=== PATIENT | female | born 1960 | race Caucasian/White ===

== ENCOUNTER → 2016-09-19 | Outpatient (CLI) | payer BC | LOC: MC.RAD 07:17 | DX: Z12.31 Encounter for screening mammogram for malignant neoplasm of breast (principal) ==

== ENCOUNTER → 2017-09-21 | Outpatient (CLI) | payer BC | LOC: MC.RAD 07:36 | DX: Z12.31 Encounter for screening mammogram for malignant neoplasm of breast (principal) ==

== ENCOUNTER → 2017-09-24 | Outpatient (CLI) | payer BC | LOC: MC.RAD 13:20 | DX: R92.8 Other abnormal and inconclusive findings on diagnostic imaging of breast (principal) ==

== ENCOUNTER 2018-06-15 21:23 | Emergency (ER) | payer BC ==
[~2018-06-15] VITALS: Ht 154.9 cm; Wt 59.1 kg
[2018-06-15 21:33] VITALS: TEMP 97.5
[2018-06-15 21:35] LABS: COLLECTION METHOD CLEAN CATCH
[2018-06-15 21:38] VITALS: BP 145/84
[2018-06-15 21:59] LABS: SQUAMOUS EPITHELIAL None Seen /hpf; URINE BACTERIA Rare /hpf
[2018-06-15 22:11] LABS: PH 7 (5-8); URINE APPEARANCE Clear; URINE BILIRUBIN Negative (NEGATIVE); URINE BLOOD 3+ (NEGATIVE); URINE COLOR Yellow; URINE GLUCOSE Negative (NEGATIVE); URINE KETONE Negative (NEGATIVE); URINE LEUKOCYTE ESTERASE 2+ (NEGATIVE); URINE NITRATE Negative (NEGATIVE); URINE PROTEIN(semi-quant) Negative (NEGATIVE); URINE UROBILINOGEN Negative (NEGATIVE)
[2018-06-15] MEDS ORDERED: CEFTIN 250250 MG/TAB PO (22:39)
[2018-06-15] MEDS ORDERED: PEPCID 20MG TAB20 MG PO (22:44)
[2018-06-15 22:45] VITALS: PULSE 48
== END 2018-06-15 22:55 | disposition home or self-care (01) ==
LOC: COL.ER 21:23
PROVIDERS: Emergency Medicine
DX: N39.0 Urinary tract infection, site not specified (principal); K21.9 Gastro-esophageal reflux disease without esophagitis; I10 Essential (primary) hypertension

== ENCOUNTER → 2018-09-30 | Outpatient (CLI) | payer BC ==
[~2018-09-30] MED LIST: CEFTIN 250250 MG/TAB PO; PEPCID 20MG TAB20 MG PO
== END ==
LOC: MC.RAD 06:55
DX: Z12.31 Encounter for screening mammogram for malignant neoplasm of breast (principal)